=== PATIENT | female | born 1975 | race Caucasian/White ===

== ENCOUNTER 2018-08-31 09:03 | Emergency (ER) | payer BC, MEDICAID ==
[~2018-08-31] VITALS: Ht 162.6 cm; Wt 68.0 kg
[2018-08-31 09:03] VITALS: BP_SYST 130
[2018-08-31 09:48] VITALS: BP_SYST 128
== END 2018-08-31 09:48 | disposition home or self-care (01) ==
LOC: SED 09:03
DX: B02.8 Zoster with other complications (principal)
CPT/HCPCS: 99283

== ENCOUNTER 2018-11-01 11:16 | Emergency (ER) | payer MEDICAID ==
[~2018-11-01] VITALS: Ht 154.9 cm; Wt 90.7 kg
[2018-11-01 11:32] VITALS: BP_SYST 111
[2018-11-01 12:15] LABS: BASOPHILS # (AUTO) 0.1 K/uL (0.0-0.2); BASOPHILS % (AUTO) 0.7 % (0.0-2.0); EOSINOPHILS # (AUTO) 0.2 K/uL (0.0-0.4); EOSINOPHILS % (AUTO) 3.4 % (0.0-4.0); HEMATOCRIT 43.2 % (36-48); HEMOGLOBIN 14.8 g/dL (12.0-16.0); LYMPHOCYTES # (AUTO) 2.2 K/uL (1.0-5.5); LYMPHOCYTES % (AUTO) 32.5 % (20.5-51.5); MEAN CORPUSCULAR HEMOGLOBIN 29 pg (27-31); MEAN CORPUSCULAR HGB CONC 34 % (32-36); MEAN CORPUSCULAR VOLUME 84 fL (79.0-98.0); MONOCYTES # (AUTO) 0.4 K/uL (0.0-1.0); MONOCYTES % (AUTO) 6.4 % (1.7-9.3); NEUTROPHILS # (AUTO) 3.9 K/uL (1.8-7.7); PLATELET COUNT (AUTO) 305 K/uL (130-430); RED BLOOD CELL COUNT(AUTO) 5.14 MIL/uL (4.2-6.2); RED CELL DISTRIBUTION WIDTH 13.2 % (9.0-15.0); WHITE BLOOD COUNT (AUTO) 6.8 K/uL (4.8-10.8)
[2018-11-01 12:32] LABS: CALCIUM 8.9 mg/dL (8.4-11.0); CREATININE 0.66 mg/dL (0.55-1.30); POTASSIUM 4.3 mmol/L (3.5-5.1)
[2018-11-01 12:41] LABS: INR 0.9 (0.8-1.2); PROTHROMBIN TIME 9.4 SECS (9.5-12.5)
[2018-11-01 12:46] LABS: ALBUMIN 3.5 g/dL (3.4-4.8); TOTAL BILIRUBIN 0.5 mg/dL (0.0-1.0)
[2018-11-01] MEDS: KETOROLAC TROMETHAMINE 60 MG/2 ML VIAL IM ONE (13:54)
[2018-11-01 14:28] VITALS: BP_SYST 128
== END 2018-11-01 14:28 | disposition home or self-care (01) ==
LOC: SED 11:16
DX: K80.20 Calculus of gallbladder without cholecystitis without obstruction (principal); R19.07 Generalized intra-abdominal and pelvic swelling, mass and lump
CPT/HCPCS: 36415; 74176; 80053; 81002; 81025; 82150; 83605; 83690; 84703; 85025; 85610; 85730; 99284; J1885

== ENCOUNTER 2021-01-28 08:36 | Emergency (ER) | payer MEDICAID, OTHER ==
[~2021-01-28] VITALS: Ht 154.9 cm; Wt 81.6 kg
[2021-01-28 08:44] VITALS: BP_SYST 127
[2021-01-28] MEDS ORDERED: MAG HYDROX/AL HYDROX/SIMETH 30 ML, LIDOCAINE VISCOUS 2% 15ML (PO) 15 ML, DICYCLOMINE HC... PO ONE ×3 (09:00)
[2021-01-28 09:44] VITALS: BP_SYST 127
== END 2021-01-28 09:44 | disposition home or self-care (01) ==
LOC: SED 08:36
DX: K22.4 Dyskinesia of esophagus (principal); R09.89 Other specified symptoms and signs involving the circulatory and respiratory systems
CPT/HCPCS: 99283; J2001

== ENCOUNTER 2024-03-16 23:47 | Emergency (ER) | payer OTHER ==
[~2024-03-16] VITALS: Ht 154.9 cm; Wt 95.3 kg
[2024-03-17 00:07] VITALS: BP_SYST 119; PULSE 75; RESP 20; TEMP 98; O2SAT 99
== END 2024-03-17 00:20 | disposition left against medical advice (07) ==
LOC: SED 23:47
DX: J02.9 Acute pharyngitis, unspecified (principal); Z53.21 Procedure and treatment not carried out due to patient leaving prior to being seen by health care provider